=== PATIENT | female | born 1965 | race Caucasian/White ===

== ENCOUNTER 2021-12-30 03:45 | Emergency (ER) | payer OTHER ==
[~2021-12-30] VITALS: Ht 152.4 cm; Wt 70.0 kg
[2021-12-30] MEDS ORDERED: ASPIRIN 81MG TABLET PO ONE (04:45)
[2021-12-30] MEDS ORDERED: NITROGLYCERIN 0.4MG TABLET SL SL PRN (04:45)
[2021-12-30 05:27] LABS: BASOPHILS % 1.4 % (0.0-2.0); EOSINOPHILS % 6.7 % (0.0-5.0); HEMATOCRIT. 40.8 % (36.0-48.0); HEMOGLOBIN. 13.9 g/dL (12.0-16.0); LYMPHOCYTES % 44.3 % (20.0-50.0); MEAN CORPUSCULAR HEMOGLOBIN 30.9 pg (28.0-32.0); MEAN CORPUSCULAR VOLUME 91.1 fL (81.0-99.0); MEAN PLATELET VOLUME 7.7 fl (7.4-10.4); MONOCYTES % 6.7 % (2.0-8.0); NEUTROPHILS % 40.9 % (40.0-76.0); PLATELET 250 x1000/uL (130-400); RED BLOOD CELL COUNT 4.48 mill/uL (4.2-5.4); RED CELL DISTRIBUTION WIDTH 12.9 % (11.6-14.6)
[2021-12-30 05:44] LABS: CHLORIDE 106 mEq/L (98-107)
[2021-12-30 08:28] LABS: BG BASE EXCESS -5.3 mmol/L (-2.0-2.0); BG CARBOXYHEMOGLOBIN 0.3 % (0.5-1.5); BG DEOXYHEMOGLOBIN 2.8 % (0.0-5.0); BG FRACTION INSPIRED OXYGEN 21; BG HCO3 ACT 18.9 mmol/L (22.0-26.0); BG METHEMOGLOBIN 0.2 % (0.0-1.5); BG OXYGEN SATURATION 97.2 % (92.0-98.5); BG OXYHEMOGLOBIN 96.7 % (94.0-97.0); BG PCO2 32.7 mmHg (35.0-45.0); BG PH 7.379 (7.350-7.450); BG PO2 97.6 mmHg (75.0-100.0); BG SAMPLE SITE RIGHT BRACHIAL; BG TOTAL HEMOGLOBIN 13.6 g/dL (12.0-18.0); BG VENT MODE ROOM AIR
[2021-12-30] MEDS ORDERED: LORAZEPAM 1MG TABLET PO ONE (08:45)
[2021-12-30] MEDS ORDERED: HYDRALAZINE 20MG/ML VIAL IV ONE (08:45)
[2021-12-30 17:25] VITALS: BP 140/83
== END 2021-12-30 19:03 | disposition short-term general hospital (02) ==
LOC: ER 03:45
DX: R41.82 Altered mental status, unspecified (principal); R07.89 Other chest pain; I10 Essential (primary) hypertension; Z20.822 Contact with and (suspected) exposure to COVID-19
CPT/HCPCS: 36415; 36600; 70450; 71045; 80053; 82375; 82805; 83880; 84484; 85025; 87426; 93005; 96374; 99285; C9803; J0360; Z7610